=== PATIENT | female | born 1965 | race American Indian/Alaskan Native ===

== ENCOUNTER 2017-01-29 20:48 | Emergency (ER) | payer SELFPAY ==
[2017-01-29 21:51] LABS: Basophils % (Auto) 0.7 % (0.0-1.8); Hematocrit 30.5 % (30.3-42.9); Hemoglobin 9.8 gm/dl (10.1-14.3); Mean Corpuscular HGB Conc 32 % (30-34); Mean Corpuscular Hemoglobin 26 pg (28-32); Mean Corpuscular Volume 82 fl (79-97); Platelet Count 384 K/mm3 (140-440); Red Blood Count 3.72 M/mm3 (3.65-5.03); Red Cell Distribution Width 14.5 % (13.2-15.2); White Blood Count 7.9 K/mm3 (4.5-11.0)
[2017-01-29 21:55] LABS: Alanine Aminotransferase 10 units/L (7-56); Albumin/Globulin Ratio 1.1 %; Alkaline Phosphatase 69 units/L (35-129); Anion Gap 20 mmol/L; BUN/Creatinine Ratio 11.42; Blood Urea Nitrogen 8 mg/dL (7-17); Calcium 9.5 mg/dL (8.4-10.2); Carbon Dioxide 21 mmol/L (22-30); Chloride 102.4 mmol/L (98-107); Glucose 97 mg/dL (65-100); Lipase 35 units/L (13-60); Sodium 139 mmol/L (137-145); Total Protein 7.6 g/dL (6.3-8.2)
[2017-01-29 22:01] LABS: INR 0.91 (0.87-1.13)
[2017-01-29 22:02] LABS: Partial Thromboplastin Time 29.6 Sec. (24.2-36.6)
--- NOTE | 2017-01-29 22:37 | Cat Scan Report ---
FINAL REPORT EXAM: CT HEAD/BRAIN WO CON HISTORY: Headache, Arm numb, preg test pending TECHNIQUE: CT imaging acquired through the head without intravenous contrast. Transaxial reformations are provided. PRIORS: None. FINDINGS: The ventricles, cisterns and sulci are normal. No intraparenchymal or extra-axial mass, hemorrhage, or mass effect. Mejia and white-matter differentiation is normal. Normal spherical shape of the globes. Left maxillary sinus fluid level. Remaining imaged paranasal sinuses are clear. Hyperostosis frontalis is noted. No skull or facial fracture visualized. IMPRESSION: No acute intracranial abnormality. Left maxillary sinus fluid level. Please correlate for symptoms of acute sinusitis.
--- NOTE | 2017-01-29 22:38 | XRay Report ---
FINAL REPORT EXAM: XR CHEST ROUTINE 2V HISTORY: Cardiac? Arm numb, Preg test pending, TECHNIQUE: PA and lateral chest radiographs PRIORS: None. FINDINGS: No mediastinal shift. Cardiac silhouette is not enlarged. No pneumothorax, effusion, or focal pulmonary opacity. No acute skeletal finding. IMPRESSION: No focal pulmonary opacity.
[2017-01-29 23:12] LABS: Bilirubin,Urine NEG (Negative); Blood,Urine NEG (Negative); Ketones,Urine NEG (Negative); Leukocyte Esterase,Urine NEG (Negative); Mucus,Urine FEW /HPF; Nitrite,Urine NEG (Negative); Protein,Urine <15 mg/dL mg/dL (Negative); Urobilinogen,Urine < 2.0 mg/dL (<2.0)
--- NOTE | 2017-01-30 01:25 | Emergency Department Report ---
ED General Adult HPI - General Chief complaint: Chest Pain Stated complaint: HEADACHE/LEFT SIDE NUMBNESS Time Seen by Provider: 01/30/17 00:43 Source: patient Mode of arrival: Ambulatory Limitations: No Limitations - History of Present Illness Initial comments: Patient comes into the ER today with complaints of left-sided headache for the past 3 days. She describes the headache as a throbbing pressure type pain. Patient denies any injury or visual changes. Patient states that she has also been having intermittent tightening sensation in her left arm as well. Patient denies any chest pain. Patient does state that she has been fatigued as well. Patient further notes that her menstrual cycles have been heavier than normal and that her last cycle ended 5-6 days ago. -: days(s) (3) Severity scale (0 -10): 4 - Related Data Previous Rx's Medication Instructions Recorded Last Taken Type HYDROcodone/APAP 5-325 [[place] 1 each PO Q6HR PRN #12 tablet 12/02/15 Unknown Rx 5/325] Ibuprofen [Motrin 800 MG tab] 800 mg PO Q8HR PRN #30 tablet 12/02/15 Unknown Rx Amoxicillin/K Clav Tab [Augmentin 1 tab PO Q12HR #20 tab 01/30/17 Unknown Rx 875 mg] Butalb/Acetamin/Caff 50-325-40 1 tab PO Q6HR PRN #15 tab 01/30/17 Unknown Rx [Fioricet] Ferrous Sulfate [Feosol 325 MG tab] 325 mg PO QDAY #30 tablet 01/30/17 Unknown Rx Allergies Allergy/AdvReac Type Severity Reaction Status Date / Time No Known Allergies Allergy Verified 10/23/15 16:52 ED Review of Systems ROS: Stated complaint: HEADACHE/LEFT SIDE NUMBNESS Other details as noted in HPI Constitutional: denies: chills, fever Eyes: denies: eye pain, eye discharge, vision change ENT: congestion. denies: ear pain, throat pain, dental pain, hearing loss, epistaxis Respiratory: denies: cough, shortness of breath, SOB with exertion, wheezing Cardiovascular: denies: chest pain, palpitations, dyspnea on exertion, edema, syncope Endocrine: no symptoms reported Gastrointestinal: denies: abdominal pain, nausea, vomiting, diarrhea, constipation Genitourinary: denies: urgency, dysuria, discharge Musculoskeletal: myalgia. denies: back pain, joint swelling, arthralgia Skin: denies: rash, lesions Neurological: headache, vertigo. denies: weakness, numbness, paresthesias, confusion Psychiatric: denies: anxiety, depression Hematological/Lymphatic: denies: easy bleeding, easy bruising ED Past Medical Hx - Past Medical History Previous Medical History?: No - Surgical History Past Surgical History?: No - Social History Smoking Status: Former Smoker Substance Use Type: Alcohol - Medications Home Medications: Home Medications Medication Instructions Recorded Confirmed Last Taken Type HYDROcodone/APAP 5-325 [[place] 1 each PO Q6HR PRN #12 tablet 12/02/15 Unknown Rx 5/325] Ibuprofen [Motrin 800 MG tab] 800 mg PO Q8HR PRN #30 tablet 12/02/15 Unknown Rx Amoxicillin/K Clav Tab [Augmentin 1 tab PO Q12HR #20 tab 01/30/17 Unknown Rx 875 mg] Butalb/Acetamin/Caff 50-325-40 1 tab PO Q6HR PRN #15 tab 01/30/17 Unknown Rx [Fioricet] Ferrous Sulfate [Feosol 325 MG tab] 325 mg PO QDAY #30 tablet 01/30/17 Unknown Rx ED Physical Exam - General Limitations: No Limitations General appearance: alert, in no apparent distress - Head Head exam: Present: atraumatic, normocephalic, normal inspection - Eye Eye exam: Present: normal appearance, PERRL, EOMI. Absent: conjunctival injection, periorbital swelling, periorbital tenderness Pupils: Present: normal accommodation - ENT ENT exam: Present: mucous membranes moist, TM's normal bilaterally, normal external ear exam, other (bilateral nasal mucosa redness and swelling. Left sided frontal and maxillary sinus tenderness) - Neck Neck exam: Present: normal inspection, full ROM. Absent: tenderness, lymphadenopathy, thyromegaly - Respiratory Respiratory exam: Present: normal lung sounds bilaterally. Absent: respiratory distress, wheezes, rales, rhonchi, chest wall tenderness, decreased breath sounds - Cardiovascular Cardiovascular Exam: Present: regular rate, normal rhythm. Absent: systolic murmur, diastolic murmur, rubs, gallop - GI/Abdominal GI/Abdominal exam: Present: soft, normal bowel sounds. Absent: distended, tenderness, guarding, rebound - Extremities Exam Extremities exam: Present: normal inspection, full ROM, normal capillary refill. Absent: tenderness, pedal edema, joint swelling, calf tenderness - Back Exam Back exam: Present: normal inspection, full ROM. Absent: tenderness, CVA tenderness (R), CVA tenderness (L), muscle spasm - Neurological Exam Neurological exam: Present: alert, oriented X3, CN II-XII intact, normal gait, reflexes normal. Absent: motor sensory deficit - Psychiatric Psychiatric exam: Present: normal affect, normal mood - Skin Skin exam: Present: warm, dry, intact, normal color. Absent: rash ED Course Vital Signs 01/29/17 21:05 Temperature 98.7 F Pulse Rate 99 H Respiratory 18 Rate Blood Pressure 156/91 [Right] O2 Sat by Pulse 100 Oximetry ED Medical Decision Making - Lab Data Result diagrams: 01/29/17 21:19 01/29/17 21:19 Lab Results 01/29/17 01/29/17 01/29/17 Range/Units 21:19 21:19 21:19 WBC 7.9 (4.5-11.0) K/mm3 RBC 3.72 (3.65-5.03) M/mm3 Hgb 9.8 L (10.1-14.3) gm/dl Hct 30.5 (30.3-42.9) % MCV 82 (79-97) fl MCH 26 L (28-32) pg MCHC 32 (30-34) % RDW 14.5 (13.2-15.2) % Plt Count 384 (140-440) K/mm3 Lymph % (Auto) 34.0 (13.4-35.0) % [place] % (Auto) 7.3 (0.0-7.3) % Eos % (Auto) 1.0 (0.0-4.3) % Baso % (Auto) 0.7 (0.0-1.8) % Lymph # 2.7 (1.2-5.4) K/mm3 [place] # 0.6 (0.0-0.8) K/mm3 Eos # 0.1 (0.0-0.4) K/mm3 Baso # 0.1 (0.0-0.1) K/mm3 Seg Neutrophils % 57.0 (40.0-70.0) % Seg Neutrophils # 4.5 (1.8-7.7) K/mm3 PT (12.2-14.9) Sec. INR (0.87-1.13) APTT (24.2-36.6) Sec. Sodium 139 (137-145) mmol/L Potassium 4.0 (3.6-5.0) mmol/L Chloride 102.4 (98-107) mmol/L Carbon Dioxide 21 L (22-30) mmol/L Anion Gap 20 mmol/L BUN 8 (7-17) mg/dL Creatinine 0.7 (0.7-1.2) mg/dL Estimated GFR > 60 ml/min BUN/Creatinine Ratio 11.42 % Glucose 97 (65-100) mg/dL Calcium 9.5 (8.4-10.2) mg/dL Total Bilirubin 0.40 (0.1-1.2) mg/dL AST 13 (5-40) units/L ALT 10 (7-56) units/L Alkaline Phosphatase 69 (35-129) units/L Troponin T < 0.010 (0.00-0.029) ng/mL Total Protein 7.6 (6.3-8.2) g/dL Albumin 4.0 (3.9-5) g/dL Albumin/Globulin Ratio 1.1 % Lipase 35 (13-60) units/L HCG, Qual Negative (Negative) Urine Color (Yellow) Urine Turbidity (Clear) Urine pH (5.0-7.0) Ur Specific [place] (1.003-1.030) Urine Protein (Negative) mg/dL Urine Glucose (UA) (Negative) mg/dL Urine Ketones (Negative) mg/dL Urine Blood (Negative) Urine Nitrite (Negative) Urine Bilirubin (Negative) Urine Urobilinogen (<2.0) mg/dL Ur Leukocyte Esterase (Negative) Urine WBC (Auto) (0.0-6.0) /HPF Urine RBC (Auto) (0.0-6.0) /HPF U Epithel Cells (Auto) (0-13.0) /HPF Urine Mucus /HPF 01/29/17 01/29/17 01/30/17 Range/Units 21:19 22:03 00:22 WBC (4.5-11.0) K/mm3 RBC (3.65-5.03) M/mm3 Hgb (10.1-14.3) gm/dl Hct (30.3-42.9) % MCV (79-97) fl MCH (28-32) pg MCHC (30-34) % RDW (13.2-15.2) % Plt Count (140-440) K/mm3 Lymph % (Auto) (13.4-35.0) % [place] % (Auto) (0.0-7.3) % Eos % (Auto) (0.0-4.3) % Baso % (Auto) (0.0-1.8) % Lymph # (1.2-5.4) K/mm3 [place] # (0.0-0.8) K/mm3 Eos # (0.0-0.4) K/mm3 Baso # (0.0-0.1) K/mm3 Seg Neutrophils % (40.0-70.0) % Seg Neutrophils # (1.8-7.7) K/mm3 PT 12.7 (12.2-14.9) Sec. INR 0.91 (0.87-1.13) APTT 29.6 (24.2-36.6) Sec. Sodium (137-145) mmol/L Potassium (3.6-5.0) mmol/L Chloride (98-107) mmol/L Carbon Dioxide (22-30) mmol/L Anion Gap mmol/L BUN (7-17) mg/dL Creatinine (0.7-1.2) mg/dL Estimated GFR ml/min BUN/Creatinine Ratio % Glucose (65-100) mg/dL Calcium (8.4-10.2) mg/dL Total Bilirubin (0.1-1.2) mg/dL AST (5-40) units/L ALT (7-56) units/L Alkaline Phosphatase (35-129) units/L Troponin T < 0.010 (0.00-0.029) ng/mL Total Protein (6.3-8.2) g/dL Albumin (3.9-5) g/dL Albumin/Globulin Ratio % Lipase (13-60) units/L HCG, Qual (Negative) Urine Color Yellow (Yellow) Urine Turbidity Clear (Clear) Urine pH 5.0 (5.0-7.0) Ur Specific [place] 1.018 (1.003-1.030) Urine Protein <15 mg/dl (Negative) mg/dL Urine Glucose (UA) Neg (Negative) mg/dL Urine Ketones Neg (Negative) mg/dL Urine Blood Neg (Negative) Urine Nitrite Neg (Negative) Urine Bilirubin Neg (Negative) Urine Urobilinogen < 2.0 (<2.0) mg/dL Ur Leukocyte Esterase Neg (Negative) Urine WBC (Auto) 1.0 (0.0-6.0) /HPF Urine RBC (Auto) 3.0 (0.0-6.0) /HPF U Epithel Cells (Auto) 6.0 (0-13.0) /HPF Urine Mucus Few /HPF - EKG Data -: EKG Interpreted by Me EKG shows normal: sinus rhythm - EKG Data When compared to previous EKG there are: no significant change Interpretation: no acute changes - Radiology Data Radiology results: report reviewed Chest x-ray interpreted as normal Head CT without contrast reveals left sided sinus disease. No acute intracranial pathology noted. - Medical Decision Making Patient is nontoxic and hemodynamically stable. I believe patient's symptoms might be related to underlying sinus disease that may be escalating into complex migraines. Imaging as well as EKG and lab workup reviewed and discussed with patient and family in room. Patient has negative cardiac workup. I believe patient's anemia is most likely to her stroll cycle irregularity that she has been having. I will start patient on some supplemental iron and have encouraged patient to follow up with her primary care doctor to recheck her levels. Patient is not experiencing any neuro deficits and is without any signs or symptoms consistent with a CVA. Patient is in agreement with treatment plan and patient is stable for discharge. Critical care attestation.: If time is entered above; I have spent that time in minutes in the direct care of this critically ill patient, excluding procedure time. ED Disposition Clinical Impression: Left-sided headache, Sinusitis, Anemia, Elevated blood pressure reading Disposition: DC-01 TO HOME OR SELFCARE Is pt being admited?: No Does the pt Need Aspirin: No Condition: Good Instructions: Iron Deficiency Anemia (ED), Sinusitis (ED), Migraine Headache ( ED), How to Take a Blood Pressure (ED) Prescriptions: Amoxicillin/K Clav Tab [Augmentin 875 mg] 1 tab PO Q12HR #20 tab Butalb/Acetamin/Caff 50-325-40 [Fioricet] 1 tab PO Q6HR PRN #15 tab PRN Reason: Headache Ferrous Sulfate [Feosol 325 MG tab] 325 mg PO QDAY #30 tablet Referrals: PRIMARY CARE, [Primary Care Provider] - 3-5 Days [facility] [Outside] - 3-5 Days [facility] [Outside] - 3-5 Days Time of Disposition: 01:35
[2017-01-30 01:31] VITALS: BP 152/85
== END 2017-01-30 01:52 | disposition home or self-care (01) ==
LOC: ED 20:48
DX: J32.0 Chronic maxillary sinusitis (principal); J32.1 Chronic frontal sinusitis; D64.9 Anemia, unspecified; R03.0 Elevated blood-pressure reading, without diagnosis of hypertension; Z87.891 Personal history of nicotine dependence
CPT/HCPCS: 36415; 70450; 71020; 80053; 81001; 83690; 84484; 84703; 85025; 85610; 85730; 93005; 93010; 99285

== ENCOUNTER 2017-04-12 10:47 | Emergency (ER) | payer SELFPAY ==
--- NOTE | 2017-04-12 11:20 | Emergency Department Report ---
Chief Complaint: Chest Pain Stated Complaint: GE/TIGHTNESS IN CHEST Time Seen by Provider: 04/12/17 11:15 - HPI History of Present Illness: PT c/o chest tightening up x 2 weeks. PT states it is worse with eating. PT states she was dx with Gerd. PT states she took Pepcid for 6 months - only helped for 4 months PT states she was switched to Nexium - taking for 3 months - no improvement Started taking Zantac in March - ROS Review of Systems: + decrease appetite + nausea - vomiting - abd pain + back pain - Exam Vital Signs: Vital Signs 04/12/17 10:58 Temperature 98.7 F Pulse Rate 80 Respiratory 18 Rate Blood Pressure 133/67 O2 Sat by Pulse 99 Oximetry Physical Exam: pt looks well, non toxic steady gait + chest wall tenderness abd soft and non tender MSE screening note: Focused history and physical exam performed. Due to findings the following was ordered: labs, xr ED Disposition for MSE Condition: Stable
--- NOTE | 2017-04-12 11:59 | XRay Report ---
ROUTINE CHEST, TWO VIEWS: HISTORY: chest pain. The trachea, heart, mediastinal contour, lung draper and bony thorax are unremarkable. IMPRESSION: Unremarkable chest x-ray.
[2017-04-12 12:26] LABS: Alanine Aminotransferase 9 units/L (7-56); Albumin 4.2 g/dL (3.9-5); Albumin/Globulin Ratio 1.1 %; Alkaline Phosphatase 73 units/L (35-129); Anion Gap 19 mmol/L; BUN/Creatinine Ratio 18.57; Blood Urea Nitrogen 13 mg/dL (7-17); Calcium 9.6 mg/dL (8.4-10.2); Carbon Dioxide 22 mmol/L (22-30); Chloride 102.1 mmol/L (98-107); Glucose 95 mg/dL (65-100); Lipase 36 units/L (13-60); Potassium 4.3 mmol/L (3.6-5.0); Sodium 139 mmol/L (137-145); Total Protein 7.9 g/dL (6.3-8.2)
[2017-04-12 12:29] LABS: Basophils % (Auto) 0.9 % (0.0-1.8); Eosinophils % (Auto) 1.4 % (0.0-4.3); Hematocrit 32.5 % (30.3-42.9); Hemoglobin 10.3 gm/dl (10.1-14.3); Mean Corpuscular HGB Conc 32 % (30-34); Mean Corpuscular Volume 81 fl (79-97); Platelet Count 349 K/mm3 (140-440); Red Blood Count 4.02 M/mm3 (3.65-5.03); Red Cell Distribution Width 15.6 % (13.2-15.2); White Blood Count 5.4 K/mm3 (4.5-11.0)
[2017-04-12 12:33] LABS: Mean Corpuscular Hemoglobin 26 pg (28-32)
[2017-04-12 12:38] LABS: INR 0.9 (0.87-1.13)
[2017-04-12 12:39] LABS: Partial Thromboplastin Time 30.5 Sec. (24.2-36.6)
--- NOTE | 2017-04-12 22:11 | Emergency Department Report ---
ED General Adult HPI - General Chief complaint: Chest Pain Stated complaint: GE/TIGHTNESS IN CHEST Time Seen by Provider: 04/12/17 11:15 Source: patient Mode of arrival: Ambulatory Limitations: No Limitations - History of Present Illness Initial comments: Patient is year-old female past medical history of GERD who presents with epigastric abdominal pain as been going on for the last 2 weeks. As a burning type of pain is worse at night. Fatty foods makes it worse. Also when she lays down to sleep she feels a sharp burning pain and she has to sleep propped up. She states it's a burning type of pain it is a 10 out of 10 and radiates to her face. It is intermittent. She has tried Pepcid and Nexium for it however nothing has relieved it. Patient denies having any vomiting or any nausea. Severity scale (0 -10): 0 - Related Data Previous Rx's Medication Instructions Recorded Last Taken Type HYDROcodone/APAP 5-325 [[place] 1 each PO Q6HR PRN #12 tablet 12/02/15 Unknown Rx 5/325] Ibuprofen [Motrin 800 MG tab] 800 mg PO Q8HR PRN #30 tablet 12/02/15 Unknown Rx Amoxicillin/K Clav Tab [Augmentin 1 tab PO Q12HR #20 tab 01/30/17 Unknown Rx 875 mg] Butalb/Acetamin/Caff 50-325-40 1 tab PO Q6HR PRN #15 tab 01/30/17 Unknown Rx [Fioricet] Ferrous Sulfate [Feosol 325 MG tab] 325 mg PO QDAY #30 tablet 01/30/17 Unknown Rx Famotidine [Pepcid] 40 mg PO BID #60 tablet 04/13/17 Unknown Rx Allergies Allergy/AdvReac Type Severity Reaction Status Date / Time No Known Allergies Allergy Verified 10/23/15 16:52 ED Review of Systems ROS: Stated complaint: GE/TIGHTNESS IN CHEST Other details as noted in HPI Constitutional: denies: chills, fever Eyes: denies: eye pain, eye discharge, vision change ENT: denies: ear pain, throat pain Respiratory: shortness of breath. denies: cough, wheezing Cardiovascular: denies: chest pain, palpitations Endocrine: no symptoms reported Gastrointestinal: abdominal pain. denies: nausea, diarrhea Genitourinary: denies: urgency, dysuria, discharge Musculoskeletal: denies: back pain, joint swelling, arthralgia Skin: denies: rash, lesions Neurological: denies: headache, weakness, paresthesias Psychiatric: denies: anxiety, depression Hematological/Lymphatic: denies: easy bleeding, easy bruising ED Past Medical Hx - Past Medical History Previous Medical History?: No - Surgical History Past Surgical History?: No - Social History Smoking Status: Former Smoker Substance Use Type: None - Medications Home Medications: Home Medications Medication Instructions Recorded Confirmed Last Taken Type HYDROcodone/APAP 5-325 [[place] 1 each PO Q6HR PRN #12 tablet 12/02/15 Unknown Rx 5/325] Ibuprofen [Motrin 800 MG tab] 800 mg PO Q8HR PRN #30 tablet 12/02/15 Unknown Rx Amoxicillin/K Clav Tab [Augmentin 1 tab PO Q12HR #20 tab 01/30/17 Unknown Rx 875 mg] Butalb/Acetamin/Caff 50-325-40 1 tab PO Q6HR PRN #15 tab 01/30/17 Unknown Rx [Fioricet] Ferrous Sulfate [Feosol 325 MG tab] 325 mg PO QDAY #30 tablet 01/30/17 Unknown Rx Famotidine [Pepcid] 40 mg PO BID #60 tablet 04/13/17 Unknown Rx ED Physical Exam - General Limitations: No Limitations General appearance: alert, in no apparent distress - Head Head exam: Present: atraumatic, normocephalic - Eye Eye exam: Present: normal appearance - ENT ENT exam: Present: mucous membranes moist - Neck Neck exam: Present: normal inspection - Respiratory Respiratory exam: Present: normal lung sounds bilaterally. Absent: respiratory distress - Cardiovascular Cardiovascular Exam: Present: regular rate, normal rhythm. Absent: systolic murmur, diastolic murmur, rubs, gallop - GI/Abdominal GI/Abdominal exam: Present: soft, normal bowel sounds - Extremities Exam Extremities exam: Present: normal inspection - Back Exam Back exam: Present: normal inspection - Neurological Exam Neurological exam: Present: alert, oriented X3 - Psychiatric Psychiatric exam: Present: normal affect, normal mood - Skin Skin exam: Present: warm, dry, intact, normal color. Absent: rash ED Course Vital Signs 04/12/17 04/12/17 04/12/17 10:58 20:48 20:54 Temperature 98.7 F 98.8 F Pulse Rate 80 86 77 Respiratory 18 14 18 Rate Blood Pressure 133/67 Blood Pressure 127/64 [Right] O2 Sat by Pulse 99 99 Oximetry - Reevaluation(s) Reevaluation #1: 04/13/17 00:27 Reevaluate patient work is unremarkable. I will give patient a GI cocktail, Protonix and [place] ED Medical Decision Making - Lab Data Result diagrams: 04/12/17 11:48 04/12/17 11:48 Lab Results 04/12/17 04/12/17 04/12/17 Range/Units 11:48 11:48 11:48 WBC 5.4 (4.5-11.0) K/mm3 RBC 4.02 (3.65-5.03) M/mm3 Hgb 10.3 (10.1-14.3) gm/dl Hct 32.5 (30.3-42.9) % MCV 81 (79-97) fl MCH 26 L (28-32) pg MCHC 32 (30-34) % RDW 15.6 H (13.2-15.2) % Plt Count 349 (140-440) K/mm3 Lymph % (Auto) 31.6 (13.4-35.0) % [place] % (Auto) 7.8 H (0.0-7.3) % Eos % (Auto) 1.4 (0.0-4.3) % Baso % (Auto) 0.9 (0.0-1.8) % Lymph # 1.7 (1.2-5.4) K/mm3 [place] # 0.4 (0.0-0.8) K/mm3 Eos # 0.1 (0.0-0.4) K/mm3 Baso # 0.0 (0.0-0.1) K/mm3 Seg Neutrophils % 58.3 (40.0-70.0) % Seg Neutrophils # 3.1 (1.8-7.7) K/mm3 PT 12.6 (12.2-14.9) Sec. INR 0.90 (0.87-1.13) APTT 30.5 (24.2-36.6) Sec. Sodium 139 (137-145) mmol/L Potassium 4.3 (3.6-5.0) mmol/L Chloride 102.1 (98-107) mmol/L Carbon Dioxide 22 (22-30) mmol/L Anion Gap 19 mmol/L BUN 13 (7-17) mg/dL Creatinine 0.7 (0.7-1.2) mg/dL Estimated GFR > 60 ml/min BUN/Creatinine Ratio 18.57 % Glucose 95 (65-100) mg/dL Calcium 9.6 (8.4-10.2) mg/dL Total Bilirubin 0.40 (0.1-1.2) mg/dL AST 13 (5-40) units/L ALT 9 (7-56) units/L Alkaline Phosphatase 73 (35-129) units/L Troponin T < 0.010 (0.00-0.029) ng/mL NT-Pro-B Natriuret Pep (0-900) pg/mL Total Protein 7.9 (6.3-8.2) g/dL Albumin 4.2 (3.9-5) g/dL Albumin/Globulin Ratio 1.1 % Lipase 36 (13-60) units/L HCG, Qual (Negative) 04/12/17 04/12/17 04/12/17 Range/Units 11:48 20:54 20:54 WBC (4.5-11.0) K/mm3 RBC (3.65-5.03) M/mm3 Hgb (10.1-14.3) gm/dl Hct (30.3-42.9) % MCV (79-97) fl MCH (28-32) pg MCHC (30-34) % RDW (13.2-15.2) % Plt Count (140-440) K/mm3 Lymph % (Auto) (13.4-35.0) % [place] % (Auto) (0.0-7.3) % Eos % (Auto) (0.0-4.3) % Baso % (Auto) (0.0-1.8) % Lymph # (1.2-5.4) K/mm3 [place] # (0.0-0.8) K/mm3 Eos # (0.0-0.4) K/mm3 Baso # (0.0-0.1) K/mm3 Seg Neutrophils % (40.0-70.0) % Seg Neutrophils # (1.8-7.7) K/mm3 PT (12.2-14.9) Sec. INR (0.87-1.13) APTT (24.2-36.6) Sec. Sodium (137-145) mmol/L Potassium (3.6-5.0) mmol/L Chloride (98-107) mmol/L Carbon Dioxide (22-30) mmol/L Anion Gap mmol/L BUN (7-17) mg/dL Creatinine (0.7-1.2) mg/dL Estimated GFR ml/min BUN/Creatinine Ratio % Glucose (65-100) mg/dL Calcium (8.4-10.2) mg/dL Total Bilirubin (0.1-1.2) mg/dL AST (5-40) units/L ALT (7-56) units/L Alkaline Phosphatase (35-129) units/L Troponin T < 0.010 (0.00-0.029) ng/mL NT-Pro-B Natriuret Pep 22.16 (0-900) pg/mL Total Protein (6.3-8.2) g/dL Albumin (3.9-5) g/dL Albumin/Globulin Ratio % Lipase (13-60) units/L HCG, Qual Negative (Negative) - EKG Data -: EKG Interpreted by [place] - EKG Data 04/13/17 00:06 EKG shows normal sinus rhythm possible left atrial enlargement no ST segment segment elevation or T-wave inversion. - Radiology Data Radiology results: image reviewed CT angiogram of chest: Shows no pulmonary embolism no evidence of heart failure. - Medical Decision Making Chief medical diagnosis: GERD Differential diagnosis: Peptic ulcer, pancreatitis, non-STEMI, heart failure, pulmonary embolism CBC, CMP, troponin, EKG, BNP, CT angiogram, oral analgesic pain medication Patient's blood work is unremarkable CT angiogram is unremarkable due to patient having 2 negative troponins and EKG being unremarkable and having a negative BNP. It is unlikely patient's symptoms are cardiac in nature. Due to this being chronic and more of the same type of pain. I will send patient home with Protonix and I will have patient follow-up with a GI doctor Dr. De La Garza. I discussed the plan with the patient she agrees to plan and she verbalized understanding. An additional verbal discharge instructions were given Critical care attestation.: If time is entered above; I have spent that time in minutes in the direct care of this critically ill patient, excluding procedure time. ED Disposition Clinical Impression: Epigastric abdominal pain, Mild shortness of breath GERD (gastroesophageal reflux disease) Qualifiers: Esophagitis presence: esophagitis presence not specified Qualified Code(s): K21.9 - Gastro-esophageal reflux disease without esophagitis Disposition: TO HOME OR SELFCARE Is pt being admited?: No Does the pt Need Aspirin: No Condition: Stable Instructions: Diet for Ulcers and Gastritis (ED), Gastroesophageal Reflux Disease (ED), Esophageal Spasm (ED) Prescriptions: Famotidine [Pepcid] 40 mg PO BID #60 tablet Referrals: ZORAIDA DE LA GARZA MD [Staff Physician] - 3-5 Days
--- NOTE | 2017-04-12 23:21 | Cat Scan Report ---
FINAL REPORT EXAM: CT ANGIO CHEST HISTORY: eval for PE TECHNIQUE: CT chest CT angiogram with reconstructions PRIORS: None. FINDINGS: There is no evidence of filling defect within the central pulmonary vasculature to suggest the presence of acute pulmonary embolus. No evidence of mediastinal pathologic lymph node enlargement Heart and great vessels are unremarkable. The aorta is normal in caliber. No focal pulmonary infiltrate identified. No pleural fluid collection seen. No acute pulmonary abnormality noted. Visualized portion of the upper abdomen demonstrates no acute change. IMPRESSION: Negative. No CT evidence of acute pulmonary embolus
[2017-04-13] MEDS: PROTONIX IV ONE (01:02)
[2017-04-13] MEDS: NORCO 10/325 PO ONE (01:02)
[2017-04-13] MEDS: LIDOCAINE VISCOUS 2% PO ONE (01:02)
[2017-04-13] MEDS: ALUM-MAG HYDROX-SIMETH 200-200-20MG/5ML PO ONE (01:02)
[2017-04-13 01:45] VITALS: BP 128/74
== END 2017-04-13 01:45 | disposition home or self-care (01) ==
LOC: ED 10:47
DX: K21.9 Gastro-esophageal reflux disease without esophagitis (principal); R10.13 Epigastric pain; R06.02 Shortness of breath; Z87.891 Personal history of nicotine dependence
CPT/HCPCS: 36415; 71020; 71275; 80053; 83690; 83880; 84484; 84703; 85025; 85610; 85730; 93005; 93010; 96374; 99284; C9113; Q9967

== ENCOUNTER 2017-05-16 10:04 | Inpatient (IN) | payer OTHER ==
[2017-05-16 10:50] LABS: Basophils % (Auto) 0.6 % (0.0-1.8); Eosinophils % (Auto) 1.1 % (0.0-4.3); Hematocrit 33.1 % (30.3-42.9); Hemoglobin 10.4 gm/dl (10.1-14.3); Mean Corpuscular HGB Conc 31 % (30-34); Mean Corpuscular Volume 80 fl (79-97); Platelet Count 281 K/mm3 (140-440); Red Blood Count 4.12 M/mm3 (3.65-5.03); Red Cell Distribution Width 15.6 % (13.2-15.2); White Blood Count 4.7 K/mm3 (4.5-11.0)
[2017-05-16 10:51] LABS: Mean Corpuscular Hemoglobin 25 pg (28-32)
[2017-05-16 11:00] LABS: Anion Gap 18 mmol/L; BUN/Creatinine Ratio 10; Blood Urea Nitrogen 7 mg/dL (7-17); Calcium 9.4 mg/dL (8.4-10.2); Carbon Dioxide 21 mmol/L (22-30); Chloride 105.2 mmol/L (98-107); Glucose 100 mg/dL (65-100); Sodium 140 mmol/L (137-145)
[2017-05-16 11:40] LABS: Bilirubin,Urine NEG (Negative); Blood,Urine NEG (Negative); Ketones,Urine NEG (Negative); Leukocyte Esterase,Urine NEG (Negative); Mucus,Urine FEW /HPF; Nitrite,Urine NEG (Negative); Protein,Urine <15 mg/dL mg/dL (Negative); Urobilinogen,Urine < 2.0 mg/dL (<2.0); WBC,Urine < 1.0 /HPF (0.0-6.0)
--- NOTE | 2017-05-16 12:43 | Emergency Department Report ---
ED Chest Pain HPI - General Chief Complaint: Chest Pain Stated Complaint: CHEST PAIN/SOB Time Seen by Provider: 05/16/17 12:17 Source: patient Mode of arrival: Ambulatory Limitations: No Limitations - History of Present Illness Initial Comments: This is a 51-year-old female presents to the emergency department with a complaint of a one-week history of midsternal chest discomfort and/or pressure. The patient was here about one month ago and was diagnosed with acid reflux. She was placed on Pepcid, Protonix and has been taking compliantly. She also has seen a licensed and certified midwife "across the street" and had a workup and per the patient the licensed and certified midwife also agrees that this could be acid reflux. However despite her medication compliance and dietary changes that she has made, she has had this chest pain for the past week that feels slightly different than the burning sensation that brought her in about 1 month ago. Other than the acid reflux she denies any other past mental history. She denies any tobacco abuse or illicit drug use or abuse. She does not currently have a primary care physician. Recent travel or sick contacts at home. Severity scale (0 -10): 6 - Related Data Home Medications Medication Instructions Recorded Confirmed Last Taken Pantoprazole [Protonix] 40 mg PO QDAY 05/16/17 05/16/17 05/15/17 Ranitidine HCl [Acid Jukebox Checker] 150 mg PO BID 05/16/17 05/16/17 05/15/17 Allergies Allergy/AdvReac Type Severity Reaction Status Date / Time No Known Allergies Allergy Verified 10/23/15 16:52 Heart Score - HEART Score History: Slightly suspicious EKG: Non-specific Age: 45-65 Risk factors: No known risk factors Troponin: < normal limit HEART Score: 2 - Critical Actions Critical Actions: 0-3 pts:0.9-1.7%risk of adverse cardiac event.Candidate for discharge ED Review of Systems ROS: Stated complaint: CHEST PAIN/SOB Other details as noted in HPI Comment: All other systems reviewed and negative Constitutional: denies: chills, fever Eyes: denies: eye pain, eye discharge, vision change ENT: denies: ear pain, throat pain Respiratory: denies: cough, shortness of breath, wheezing Cardiovascular: chest pain. denies: palpitations Gastrointestinal: abdominal pain (epigastric). denies: vomiting Genitourinary: denies: urgency, dysuria, discharge Musculoskeletal: denies: back pain, joint swelling, arthralgia Skin: denies: rash, lesions Neurological: denies: headache, weakness, paresthesias ED Past Medical Hx - Past Medical History Hx GERD: Yes - Social History Smoking Status: Never Smoker Substance Use Type: None - Medications Home Medications: Home Medications Medication Instructions Recorded Confirmed Last Taken Type Pantoprazole [Protonix] 40 mg PO QDAY 05/16/17 05/16/17 05/15/17 History Ranitidine HCl [Acid Jukebox Checker] 150 mg PO BID 05/16/17 05/16/17 05/15/17 History ED Physical Exam - General Limitations: No Limitations - Other Other exam information: GENERAL: The patient is well-developed well-nourished. HENT: Normocephalic. Atraumatic. Patient has moist mucous membranes. EYES: Extraocular motions are intact. Pupils equal reactive to light bilaterally. NECK: Supple. Trachea is midline. CHEST/LUNGS: Clear to auscultation. There is no respiratory distress noted. HEART/CARDIOVASCULAR: Regular. There is no tachycardia. There is no gallop rub or murmur. ABDOMEN: Abdomen is soft, nontender. Patient has normal bowel sounds. There is no abdominal distention. SKIN: Skin is warm and dry. NEURO: The patient is awake, alert, and oriented. The patient is cooperative. The patient has no focal neurologic deficits. The patient has normal speech. MUSCULOSKELETAL: There is no tenderness or deformity. There is no limitation range of motion. There is no evidence of acute injury. ED Course Vital Signs 05/16/17 05/16/17 05/16/17 10:21 11:38 11:42 Temperature 98.2 F 98.3 F Pulse Rate 68 67 65 Respiratory 18 12 18 Rate Blood Pressure 117/70 Blood Pressure 112/56 [Left] O2 Sat by Pulse 99 99 99 Oximetry 05/16/17 05/16/17 05/16/17 11:43 12:00 13:44 Temperature Pulse Rate 55 L Respiratory 18 16 Rate Blood Pressure 107/54 110/64 Blood Pressure [Left] O2 Sat by Pulse 99 98 100 Oximetry 05/16/17 05/16/17 14:00 15:00 Temperature Pulse Rate Respiratory Rate Blood Pressure 126/70 164/91 Blood Pressure [Left] O2 Sat by Pulse 98 97 Oximetry DOMINIC score - Dominic Score Age > 65: (0) No Aspirin use within the Past 7 Days: (0) No 3 or more CAD Risk Factors: (0) No 2 or more Angina events in past 24 hrs: (1) Yes Known CAD with more than 50% Stenosis: (0) No Elevated Cardiac Markers: (0) No ST Deviation Greater than 0.5mm: (0) No DOMINIC Score: 1 ED Medical Decision Making - Lab Data Result diagrams: 05/16/17 10:31 05/16/17 10:31 - EKG Data -: EKG Interpreted by Me EKG shows normal: sinus rhythm, axis, intervals, QRS complexes, ST-T waves Rate: normal - EKG Data When compared to previous EKG there are: no significant change Interpretation: unchanged when compared t (04/12/17) - Radiology Data Radiology results: image reviewed interpreted by me: Chest x-ray does not show any acute process. There are no pleural effusions, obvious pneumonia and there is no pneumothorax. - Medical Decision Making 51-year-old female presents with some midsternal chest pain that feels different to her than the previous pain that was diagnosed with GERD. She appears to been compliant with following up with gastroenterology and taking both a PPI and H2 mayra and yet still has discomfort. I felt that for this reason the patient should have a further cardiac evaluation and make sure that there is no cardiac involvement before we continue going down the route of GERD or esophagitis. First troponin negative. Chest x-ray did not show any acute process. EKG does not show any signs of ST elevation WI. She's been accepted for admission by the hospitalist, Dr. Carvalho.. - Differential Diagnosis GERD, WI, Esophagitis, Pneumonia Critical Care Time: No Critical care attestation.: If time is entered above; I have spent that time in minutes in the direct care of this critically ill patient, excluding procedure time. ED Disposition Clinical Impression: Chest pain Qualifiers: Chest pain type: unspecified Qualified Code(s): R07.9 - Chest pain, unspecified GERD (gastroesophageal reflux disease) Qualifiers: Esophagitis presence: esophagitis presence not specified Qualified Code(s): K21.9 - Gastro-esophageal reflux disease without esophagitis Disposition: OP ADMIT IP TO THIS HOSP Is pt being admited?: Yes Does the pt Need Aspirin: Yes Condition: Stable Time of Disposition: 13:27
--- NOTE | 2017-05-16 13:26 | XRay Report ---
CHEST ONE VIEW INDICATION: Chest pain. COMPARISON: 04/12/2017. FINDINGS: Portable, single, frontal chest radiograph demonstrates normal cardiomediastinal silhouette. Clear lungs. Mild thoracic spondylosis. CONCLUSION: No acute disease in the chest, stable. Thank you for the opportunity to participate in this patient's care.
[2017-05-16] MEDS ORDERED: ALUM-MAG HYDROX-SIMETH 200-200-20MG/5ML PO ONE (13:27)
[2017-05-16] MEDS ORDERED: LIDOCAINE VISCOUS 2% PO ONE (13:27)
[2017-05-16] MEDS ORDERED: BABY ASPIRIN PO ONE (13:27)
[2017-05-16] MEDS ORDERED: HEPARIN ONE (14:37)
[2017-05-16] MEDS: HEPARIN SUB-Q SCH ×2 (14:41→21:56)
--- NOTE | 2017-05-16 23:48 | History and Physical Report ---
History of Present Illness Date of examination: 05/16/17 Date of admission: 05/16/17 13:27 Chief complaint: CC Chest pain for 1 week. History of present illness: UPPER MATTAPONI:51 y/o AAF with PMH significant for GERD comes in for recurrent Chest pain for one week.Pain is intermittent in nature dull in character.6/10 intensity.No associated SOB,Diaphoresis and Palpitations.No exacerbating or relieving factors.Was in this ER in January 2017 and April 2017 and was diagnosed with reflux esophagitis and was started on PPI's -which she is taking religiously.Was a smoker from age 19 through 36 years and quit for past 16 years.No recent travel.No fever no chills. Past Medical History Hx GERD: Yes Social History Smoking Status: Smoked from age 19 through 36 years.17 pack year history. Substance Use Type: None Medications Home Medications: Home Medications Medication Instructions Recorded Confirmed Last Taken Type Pantoprazole [Protonix] 40 mg PO QDAY 05/16/17 05/16/17 05/15/17 History Ranitidine HCl [Acid Senior Front End Web Developer] 150 mg PO BID 05/16/17 05/16/17 05/15/17 History Review of Systems Stated complaint: CHEST PAIN/SOB Other details as noted in HPI Comment: All other systems reviewed and negative Constitutional: denies: chills, fever Eyes: denies: eye pain, eye discharge, vision change ENT: denies: ear pain, throat pain Respiratory: denies: cough, shortness of breath, wheezing Cardiovascular: chest pain. denies: palpitations Gastrointestinal: abdominal pain (epigastric). denies: vomiting Genitourinary: denies: urgency, dysuria, discharge Musculoskeletal: denies: back pain, joint swelling, arthralgia Skin: denies: rash, lesions Neurological: denies: headache, weakness, paresthesias Past History Past Surgical History: No surgical history Family history: hypertension Medications and Allergies Allergies Allergy/AdvReac Type Severity Reaction Status Date / Time No Known Allergies Allergy Verified 10/23/15 16:52 Home Medications Medication Instructions Recorded Confirmed Last Taken Type Pantoprazole [Protonix] 40 mg PO QDAY 05/16/17 05/16/17 05/15/17 History Ranitidine HCl [Acid Senior Front End Web Developer] 150 mg PO BID 05/16/17 05/16/17 05/15/17 History Active Meds: Active Medications Heparin Sodium (Porcine) (Heparin) 5,000 unit SUB-Q Q8HR FRANCO Last Admin: 05/16/17 21:56 Dose: 5,000 unit Influenza Virus Vaccine Quadrival (Fluarix Quad [id number](36 Mos+)) 0.5 ml IM .ONCE ONE Stop: 05/17/17 12:01 Exam - Constitutional Vitals: Temp Pulse Resp BP Pulse Ox 98.5 F 57 L 18 108/61 97 05/16/17 20:26 05/16/17 20:26 05/16/17 20:26 05/16/17 20:26 05/16/17 20:26 General appearance: Present: no acute distress, well-nourished - EENT Eyes: Present: PERRL ENT: hearing intact, clear oral mucosa - Neck Neck: Present: supple, normal ROM - Respiratory Respiratory effort: normal Respiratory: bilateral: CTA - Cardiovascular Heart rate: 70 Heart Sounds: Present: S1 & S2. Absent: rub, click - Extremities Extremities: pulses symmetrical, No edema Peripheral Pulses: within normal limits - Abdominal General gastrointestinal: Present: soft, non-tender, non-distended, normal bowel sounds Female genitourinary: Present: normal - Integumentary Integumentary: Present: clear, warm, dry - Musculoskeletal Musculoskeletal: gait normal, strength equal bilaterally - Psychiatric Psychiatric: appropriate mood/affect, intact judgment & insight - Neurologic Neurologic: CNII-XII intact, moves all extremities Results - Labs CBC & Chem 7: 05/16/17 10:31 05/16/17 10:31 Labs: Laboratory Last Values WBC 4.7 K/mm3 (4.5-11.0) 05/16/17 10:31 RBC 4.12 M/mm3 (3.65-5.03) 05/16/17 10:31 Hgb 10.4 gm/dl (10.1-14.3) 05/16/17 10:31 Hct 33.1 % (30.3-42.9) 05/16/17 10:31 MCV 80 fl (79-97) 05/16/17 10:31 MCH 25 pg (28-32) L 05/16/17 10:31 MCHC 31 % (30-34) 05/16/17 10:31 RDW 15.6 % (13.2-15.2) H 05/16/17 10:31 Plt Count 281 K/mm3 (140-440) 05/16/17 10:31 Lymph % (Auto) 31.9 % (13.4-35.0) 05/16/17 10:31 Trigg % (Auto) 8.4 % (0.0-7.3) H 05/16/17 10:31 Eos % (Auto) 1.1 % (0.0-4.3) 05/16/17 10:31 Baso % (Auto) 0.6 % (0.0-1.8) 05/16/17 10:31 Lymph # 1.5 K/mm3 (1.2-5.4) 05/16/17 10:31 Trigg # 0.4 K/mm3 (0.0-0.8) 05/16/17 10:31 Eos # 0.1 K/mm3 (0.0-0.4) 05/16/17 10:31 Baso # 0.0 K/mm3 (0.0-0.1) 05/16/17 10:31 Seg Neutrophils % 58.0 % (40.0-70.0) 05/16/17 10:31 Seg Neutrophils # 2.7 K/mm3 (1.8-7.7) 05/16/17 10:31 Sodium 140 mmol/L (137-145) 05/16/17 10:31 Potassium 4.0 mmol/L (3.6-5.0) 05/16/17 10:31 Chloride 105.2 mmol/L (98-107) 05/16/17 10:31 Carbon Dioxide 21 mmol/L (22-30) L 05/16/17 10:31 Anion Gap 18 mmol/L 05/16/17 10:31 BUN 7 mg/dL (7-17) 05/16/17 10:31 Creatinine 0.7 mg/dL (0.7-1.2) 05/16/17 10:31 Estimated GFR > 60 ml/min 05/16/17 10:31 BUN/Creatinine Ratio 10 % 05/16/17 10:31 Glucose 100 mg/dL (65-100) 05/16/17 10:31 Calcium 9.4 mg/dL (8.4-10.2) 05/16/17 10:31 Troponin T < 0.010 ng/mL (0.00-0.029) 05/16/17 15:32 Urine Color Yellow (Yellow) 05/16/17 11:17 Urine Turbidity Clear (Clear) 05/16/17 11:17 Urine pH 6.0 (5.0-7.0) 05/16/17 11:17 Ur Specific [place] 1.013 (1.003-1.030) 05/16/17 11:17 Urine Protein <15 mg/dl mg/dL (Negative) 05/16/17 11:17 Urine Glucose (UA) Neg mg/dL (Negative) 05/16/17 11:17 Urine Ketones Neg mg/dL (Negative) 05/16/17 11:17 Urine Blood Neg (Negative) 05/16/17 11:17 Urine Nitrite Neg (Negative) 05/16/17 11:17 Urine Bilirubin Neg (Negative) 05/16/17 11:17 Urine Urobilinogen < 2.0 mg/dL (<2.0) 05/16/17 11:17 Ur Leukocyte Esterase Neg (Negative) 05/16/17 11:17 Urine WBC (Auto) < 1.0 /HPF (0.0-6.0) 05/16/17 11:17 Urine RBC (Auto) 1.0 /HPF (0.0-6.0) 05/16/17 11:17 U Epithel Cells (Auto) 1.0 /HPF (0-13.0) 05/16/17 11:17 Urine Mucus Few /HPF 05/16/17 11:17 Urine HCG, Qual Negative (Negative) 05/16/17 11:17 Short CBC 05/16/17 Range/Units 10:31 WBC 4.7 (4.5-11.0) K/mm3 Hgb 10.4 (10.1-14.3) gm/dl Hct 33.1 (30.3-42.9) % Plt Count 281 (140-440) K/mm3 BMP 05/16/17 10:31 Sodium 140 Potassium 4.0 Chloride 105.2 Carbon Dioxide 21 L BUN 7 Creatinine 0.7 Glucose 100 Calcium 9.4 Cardiac Enzymes 05/16/17 05/16/17 05/16/17 Range/Units 10:31 13:10 15:32 Total Creatine Kinase (30-135) units/L CK-MB (CK-2) (0.0-4.0) ng/mL Troponin T < 0.010 < 0.010 < 0.010 (0.00-0.029) ng/mL 05/17/17 Range/Units 01:03 Total Creatine Kinase 62 (30-135) units/L CK-MB (CK-2) < 1.0 (0.0-4.0) ng/mL Troponin T < 0.010 (0.00-0.029) ng/mL Urine 05/16/17 Range/Units 11:17 Urine Color Yellow (Yellow) Urine pH 6.0 (5.0-7.0) Ur Specific [place] 1.013 (1.003-1.030) Urine Protein <15 mg/dl (Negative) mg/dL Urine Glucose (UA) Neg (Negative) mg/dL - Imaging and Cardiology EKG: report reviewed (NSR [address] elevation L AVL) Chest x-ray: report reviewed (NAF) Assessment and Plan Advance Directives: Yes (Full code) VTE prophylaxis?: Chemical Plan of care discussed with patient/family: Yes - Patient Problems (1) Chest pain Current Visit: Yes Status: Acute Qualifiers: Chest pain type: unspecified Ischemic chest pain type: I Qualified Code(s ): R07.9 - Chest pain, unspecified Plan to address problem: Chest pain r/o MT protocol.Serial CE's and Lexiscan in AM.In favor of reflux esophagitis.No chest wall tenderness. (2) GERD (gastroesophageal reflux disease) Current Visit: Yes Status: Chronic Qualifiers: Esophagitis presence: with esophagitis Qualified Code(s): K21.0 - Gastro- esophageal reflux disease with esophagitis Plan to address problem: Cont PPI's (3) Obesity Current Visit: Yes Status: Chronic Qualifiers: Obesity type: due to excess calories Obesity classification: O Serious obesity comorbidity presence: S Body mass index: BMI 37.0-37.9 Plan to address problem: Counselled (4) DVT prophylaxis Current Visit: Yes Status: Acute Plan to address problem: On Lovenox
[2017-05-17 01:44] LABS: Creatine Kinase 62 units/L (30-135)
[2017-05-17 01:50] LABS: Creatine Kinase MB < 1.0 ng/mL (0.0-4.0)
[2017-05-17 05:56] LABS: Creatine Kinase MB < 1.0 ng/mL (0.0-4.0)
[2017-05-17 05:58] LABS: Creatine Kinase 59 units/L (30-135)
[2017-05-17] MEDS: HEPARIN SUB-Q SCH ×2 (06:59→17:39)
[2017-05-17] MEDS ORDERED: PROTONIX PO SCH (10:00)
[2017-05-17] MEDS ORDERED: NACL 0.9% 500 ML 500 ML ONE (10:09)
--- NOTE | 2017-05-17 11:14 | Progress Note ---
Assessment and Plan Assessment and Plan 1. Chest pain: Serial CE negative, for stress test today. Likely due to reflux esophagitis. 2. GERD: On PPI's 3. Obesity: Counseled patient on weight loss management. 4. DVT prophylaxis: On Lovenox. 5. Disposition: Will discharge patient home if stress test normal. Subjective Date of service: 05/17/17 Principal diagnosis: Chest pain Interval history: Chest pain improving, for stress test. Objective - Constitutional Vitals: Vital Signs - 12hr 05/17/17 05/17/17 05/17/17 00:00 00:48 04:45 Temperature 98.2 F 98.2 F Pulse Rate 70 57 L 60 Respiratory 18 18 Rate Blood Pressure 107/53 108/53 O2 Sat by Pulse 98 98 Oximetry 05/17/17 07:15 Temperature 98.3 F Pulse Rate 59 L Respiratory 12 Rate Blood Pressure 101/56 O2 Sat by Pulse 97 Oximetry General appearance: Present: no acute distress, well-nourished - EENT Eyes: PERRL, EOM intact ENT: hearing intact, clear oral mucosa Ears: bilateral: normal - Neck Neck: supple, normal ROM - Respiratory Respiratory effort: normal Respiratory: bilateral: CTA - Breasts Breasts: normal - Cardiovascular Rhythm: regular Heart Sounds: Present: S1 & S2. Absent: gallop, rub Extremities: pulses intact, No edema, normal color, Full ROM - Gastrointestinal General gastrointestinal: Present: soft, non-tender, non-distended, normal bowel sounds - Genitourinary Female genitourinary: normal - Integumentary Integumentary: clear, warm, dry - Musculoskeletal Musculoskeletal: 1, strength equal bilaterally - Neurologic Neurologic: moves all extremities - Psychiatric Psychiatric: memory intact, appropriate mood/affect, intact judgment & insight - Labs CBC & Chem 7: 05/16/17 10:31 05/16/17 10:31
[2017-05-17] MEDS ORDERED: Fluarix Quad 2017-2018(36 MOS+) IM ONE (12:00)
[2017-05-17 12:32] VITALS: BP 100/54
[2017-05-17 12:46] LABS: Creatine Kinase 61 units/L (30-135)
[2017-05-17 12:49] LABS: Creatine Kinase MB < 1.0 ng/mL (0.0-4.0)
--- NOTE | 2017-05-17 15:53 | Discharge Summary ---
Providers - Providers Date of Admission: 05/16/17 13:27 Date of discharge: 05/17/17 Attending physician: RAUL BAJWA none Primary care physician: BOTTLE TESTER Hospitalization Reason for admission: chest pain Condition: Stable Pertinent studies: stress thallium larissa was negative Procedures: none Hospital course: Patient is a 51 y/o AAF with history of GERD presented to the emergency department [facility] with recurrent Chest pain one week prior. Pain is intermittent in nature dull in character. 6/10 intensity. No associated SOB,Diaphoresis and Palpitations.No exacerbating or relieving factors.Was in this ER in January 2017 and April 2017 and was diagnosed with reflux esophagitis and was started on PPI's -which she is taking religiously.Was a smoker from age 19 through 36 years and quit for past 16 years.No recent travel.No fever no chills. Serial cardiac enzymes were normal. EKG was unremarkable. On admission patient was commenced on oxygen, nitroglycerin, aspirin and morphine. Stress thallium was done. Result was negative. Patient is therefore been discharged to follow-up primary care physician and lead sql developer as her chest pain is thought to be secondary to GERD. Disposition: DC-01 TO HOME OR SELFCARE Time spent for discharge: 35 mins Core Measure Documentation - Palliative Care Palliative Care/ Comfort Measures: Not Applicable - Core Measures Any of the following diagnoses?: none Exam - Constitutional Vitals: Temp Pulse Resp BP Pulse Ox 98.6 F 70 14 100/54 100 05/17/17 12:28 05/17/17 12:28 05/17/17 12:28 05/17/17 12:28 05/17/17 12:28 General appearance: Present: no acute distress, well-nourished - EENT Eyes: Present: PERRL ENT: hearing intact, clear oral mucosa - Neck Neck: Present: supple, normal ROM - Respiratory Respiratory: bilateral: CTA - Cardiovascular Heart Sounds: Present: S1 & S2. Absent: rub, click - Extremities Extremities: pulses symmetrical, No edema Peripheral Pulses: within normal limits - Abdominal General gastrointestinal: Present: soft, non-tender, non-distended, normal bowel sounds - Integumentary Integumentary: Present: clear, warm, dry - Musculoskeletal Musculoskeletal: gait normal, strength equal bilaterally - Psychiatric Psychiatric: appropriate mood/affect, intact judgment & insight - Neurologic Neurologic: CNII-XII intact, moves all extremities Plan Activity: advance as tolerated Weight Bearing Status: Weight Bear as Tolerated Diet: regular Follow up with: PRIMARY CARE, [Primary Care Provider] - 3-5 Days Prescriptions: Pantoprazole [Protonix TAB] 40 mg PO QDAY #30 tablet Ranitidine HCl [Acid Central Sterile Technician] 150 mg PO BID #60 tablet
--- NOTE | 2017-05-18 03:38 | Treadmill Report ---
THALLIUM STRESS TEST LEFT VENTRICLE: Left ventricular chamber size is within normal ____. Perfusion study demonstrates homogeneous uptake of the tracer in all segments, no significant perfusion defects identified. Gated analysis demonstrates normal left ventricular systolic function, ejection fraction 52%. CONCLUSION: Normal myocardial perfusion study. JOB# [id number] CA/NTS
== END 2017-05-17 17:32 | disposition home or self-care (01) | DRG 392 ==
LOC: ED 10:04 → 4A 13:27
PROVIDERS: ADMIT Internal Medicine; ATTEND Family Medicine
DX: K21.9 Gastro-esophageal reflux disease without esophagitis (principal); E66.9 Obesity, unspecified; Z68.32 Body mass index [BMI] 32.0-32.9, adult; Z87.891 Personal history of nicotine dependence
CPT/HCPCS: 36415; 71010; 78452; 80048; 81001; 81025; 82550; 82553; 84484; 85025; 90686; 93005; 93010; 93017; A9502; J1644; J7040

== ENCOUNTER 2017-09-20 23:43 | Emergency (ER) | payer OTHER ==
[2017-09-21] MEDS ORDERED: ASPIRIN PO ONE (00:10)
[2017-09-21 00:53] LABS: Basophils # (Auto) 0.1 K/mm3 (0.0-0.1); Basophils % (Auto) 0.8 % (0.0-1.8); Eosinophils % (Auto) 0.7 % (0.0-4.3); Hematocrit 32.1 % (30.3-42.9); Hemoglobin 10.6 gm/dl (10.1-14.3); Lymphocytes # (Auto) 1.7 K/mm3 (1.2-5.4); Mean Corpuscular HGB Conc 33 % (30-34); Mean Corpuscular Hemoglobin 27 pg (28-32); Mean Corpuscular Volume 82 fl (79-97); Monocytes # (Auto) 0.5 K/mm3 (0.0-0.8); Monocytes % (Auto) 7.1 % (0.0-7.3); Platelet Count 320 K/mm3 (140-440); Red Blood Count 3.92 M/mm3 (3.65-5.03); Red Cell Distribution Width 15.7 % (13.2-15.2)
[2017-09-21 01:16] LABS: BUN/Creatinine Ratio 13; Blood Urea Nitrogen 9 mg/dL (7-17); Calcium 9.3 mg/dL (8.4-10.2); Hemolysis Index 3
[2017-09-21 04:03] LABS: Bilirubin,Urine NEG (Negative); Blood,Urine LG (Negative); Color,Urine Yellow (Yellow); Hyaline Casts,Urine 1 /LPF; Mucus,Urine 1+ /HPF; Nitrite,Urine NEG (Negative); Protein,Urine <15 mg/dL mg/dL (Negative); Urobilinogen,Urine < 2.0 mg/dL (<2.0)
[2017-09-21 04:12] LABS: HCG Qualitative,Urine Negative (Negative)
--- NOTE | 2017-09-21 09:45 | Emergency Department Report ---
ED Chest Pain HPI - General Chief Complaint: Chest Pain Stated Complaint: CP Time Seen by Provider: 09/21/17 09:34 Source: patient Mode of arrival: Ambulatory Limitations: No Limitations - History of Present Illness Initial Comments: Patient is 51 years old female with no significant past medical history, presented to the ER with mid sternal chest pain started 2 days ago, she described her pain as sharp and does not radiate. Patient denied any shortness of breath, nausea or vomiting. Patient stated that she is unable to sleep for the last 2 days for unknown reason. 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 MD Complaint: chest pain -: days(s) - Related Data Previous Rx's Medication Instructions Recorded Last Taken Type Pantoprazole [Protonix TAB] 40 mg PO QDAY #30 tablet 05/17/17 Unknown Rx Ranitidine HCl [Acid Ad Setter] 150 mg PO BID #60 tablet 05/17/17 Unknown Rx ALPRAZolam [Xanax TAB] 0.5 mg PO DAILY PRN #5 tab 09/21/17 Unknown Rx Allergies Allergy/AdvReac Type Severity Reaction Status Date / Time No Known Allergies Allergy Verified 10/23/15 16:52 Heart Score - HEART Score History: Moderately suspicious EKG: Non-specific Age: 45-65 Risk factors: No known risk factors Troponin: < normal limit HEART Score: 3 - Critical Actions Critical Actions: 0-3 pts:0.9-1.7%risk of adverse cardiac event.Candidate for discharge ED Review of Systems ROS: Stated complaint: CP Other details as noted in HPI Comment: All other systems reviewed and negative Constitutional: denies: chills, fever Respiratory: denies: cough, orthopnea, shortness of breath, SOB with exertion Cardiovascular: chest pain. denies: palpitations, dyspnea on exertion, orthopnea, edema Gastrointestinal: denies: abdominal pain, nausea, vomiting, diarrhea, constipation, hematemesis, melena, hematochezia Genitourinary: denies: urgency Neurological: denies: headache, weakness ED Past Medical Hx - Past Medical History Hx Congestive Heart Failure: No Hx Diabetes: No Hx GERD: Yes Hx Asthma: No Hx COPD: No Hx Dementia: No Hx HIV: No - Surgical History Past Surgical History?: No - Social History Smoking Status: Former Smoker Substance Use Type: None - Medications Home Medications: Home Medications Medication Instructions Recorded Confirmed Last Taken Type Pantoprazole [Protonix TAB] 40 mg PO QDAY #30 tablet 05/17/17 Unknown Rx Ranitidine HCl [Acid Ad Setter] 150 mg PO BID #60 tablet 05/17/17 Unknown Rx ALPRAZolam [Xanax TAB] 0.5 mg PO DAILY PRN #5 tab 09/21/17 Unknown Rx ED Physical Exam - General Limitations: No Limitations - Head Head exam: Present: atraumatic, normocephalic - Eye Eye exam: Present: normal appearance, PERRL - ENT ENT exam: Present: normal exam, mucous membranes moist - Neck Neck exam: Present: normal inspection, full ROM. Absent: tenderness, meningismus - Respiratory Respiratory exam: Present: normal lung sounds bilaterally. Absent: respiratory distress, wheezes, rales, rhonchi, chest wall tenderness, accessory muscle use, decreased breath sounds, prolonged expiratory - Cardiovascular Cardiovascular Exam: Present: regular rate, normal rhythm, normal heart sounds - GI/Abdominal GI/Abdominal exam: Present: soft. Absent: distended, tenderness, guarding, rebound, rigid, mass, bruit, pulsatile mass - Extremities Exam Extremities exam: Present: normal inspection, full ROM, normal capillary refill - Back Exam Back exam: Present: normal inspection, full ROM. Absent: tenderness, CVA tenderness (R), CVA tenderness (L) - Neurological Exam Neurological exam: Present: alert, oriented X3, CN II-XII intact, normal gait - Skin Skin exam: Present: warm, intact, normal color. Absent: cyanosis, diaphoretic, erythema, urticaria ED Course Vital Signs 09/21/17 09/21/17 00:03 09:45 Temperature 97.9 F Pulse Rate 90 Respiratory 18 Rate Blood Pressure 128/74 142/82 O2 Sat by Pulse 98 Oximetry - Reevaluation(s) Reevaluation #1: 09/21/17 11:22 Patient stated that she is feeling much better. No chest pain. I advised patient to take melatonin and [id number] for sleeping aids AKASH score - Akash Score Age > 65: (0) No Aspirin use within the Past 7 Days: (0) No 3 or more CAD Risk Factors: (0) No 2 or more Angina events in past 24 hrs: (1) Yes Known CAD with more than 50% Stenosis: (0) No Elevated Cardiac Markers: (0) No ST Deviation Greater than 0.5mm: (0) No AKASH Score: 1 ED Medical Decision Making - Lab Data Result diagrams: 09/21/17 00:27 09/21/17 00:27 - EKG Data -: EKG Interpreted by Me EKG shows normal: sinus rhythm - EKG Data Interpretation: no acute changes - Radiology Data Radiology results: report reviewed Referring Physician: MARIA DE JESUS ENGLAND Patient Name: SHELBY ULLOA Date of : 1965 Sex: Female Report Date: 2017-09-21 Report Status: Finalized Findings [facility] [address] [place] [address] XRay Report Signed Patient: SHELBY ULLOA MR#: [id number] : 1965 Acct:[id number] Age/Sex: 51 / F ADM Date: 09/20/17 Loc: ED Attending Dr: Ordering Physician: MARIA DE JESUS ENGLAND Date of Service: 09/21/17 Procedure(s): XR chest 1V ap Accession Number(s): [id number] cc: MARIA DE JESUS ENGLAND Fluoro Time In Minutes: CHEST ONE VIEW INDICATION: Chest pain. COMPARISON: 05/16/2017. FINDINGS: Portable, single, frontal chest radiograph demonstrates normal cardiomediastinal silhouette. Clear lungs. Mild thoracic spondylosis. CONCLUSION: No acute disease. Thank you for the opportunity to participate in this patient's care. Transcribed By: RS Dictated By: YOSEF MESA MD Electronically Authenticated By: YOSEF MESA MD Signed Date/Time: 09/21/17 1029 DD/ 1029 TD/TT: 09/21/17 1029 Critical care attestation.: If time is entered above; I have spent that time in minutes in the direct care of this critically ill patient, excluding procedure time. ED Disposition Clinical Impression: Chest pain, Insomnia due to anxiety and fear Disposition: DC-01 TO HOME OR SELFCARE Is pt being admited?: No Condition: Stable Instructions: Chest Pain (ED) Additional Instructions: He can take [id number] melatonin to help was asleep Prescriptions: ALPRAZolam [Xanax TAB] 0.5 mg PO DAILY PRN #5 tab PRN Reason: Anxiety Referrals: PRIMARY CARE, [Primary Care Provider] - 3-5 Days Forms: Work/School Release Form(ED)
[2017-09-21 09:49] VITALS: BP 142/82
--- NOTE | 2017-09-21 10:38 | XRay Report ---
CHEST ONE VIEW INDICATION: Chest pain. COMPARISON: 05/16/2017. FINDINGS: Portable, single, frontal chest radiograph demonstrates normal cardiomediastinal silhouette. Clear lungs. Mild thoracic spondylosis. CONCLUSION: No acute disease. Thank you for the opportunity to participate in this patient's care.
== END 2017-09-21 13:00 | disposition home or self-care (01) ==
LOC: ED 23:43
DX: F41.9 Anxiety disorder, unspecified (principal); F51.05 Insomnia due to other mental disorder; K21.9 Gastro-esophageal reflux disease without esophagitis; Z87.891 Personal history of nicotine dependence
CPT/HCPCS: 36415; 71045; 80048; 81001; 81025; 84484; 85025; 93005; 93010; 99284

== ENCOUNTER 2017-10-15 00:11 | Inpatient (IN) | payer SELFPAY ==
[2017-10-15] MEDS ORDERED: ASPIRIN PO ONE (01:04)
[2017-10-15 01:21] LABS: Basophils # (Auto) 0.1 K/mm3 (0.0-0.1); Basophils % (Auto) 1.3 % (0.0-1.8); Eosinophils % (Auto) 0.8 % (0.0-4.3); Hematocrit 31.2 % (30.3-42.9); Lymphocytes # (Auto) 2.2 K/mm3 (1.2-5.4); Lymphocytes % (Auto) 34.8 % (13.4-35.0); Mean Corpuscular HGB Conc 32 % (30-34); Mean Corpuscular Hemoglobin 27 pg (28-32); Mean Corpuscular Volume 85 fl (79-97); Monocytes # (Auto) 0.6 K/mm3 (0.0-0.8); Monocytes % (Auto) 8.8 % (0.0-7.3); Platelet Count 307 K/mm3 (140-440); Red Blood Count 3.69 M/mm3 (3.65-5.03); Red Cell Distribution Width 15.9 % (13.2-15.2)
[2017-10-15 01:33] LABS: BUN/Creatinine Ratio 20; Blood Urea Nitrogen 14 mg/dL (7-17); Calcium 9.2 mg/dL (8.4-10.2); Hemolysis Index 20
[2017-10-15] MEDS ORDERED: MORPHINE IV ONE (03:41)
[2017-10-15] MEDS ORDERED: ZOFRAN IV ONE (03:41)
[2017-10-15] MEDS ORDERED: NITRO-BID 2% TP ONE (03:41)
--- NOTE | 2017-10-15 03:49 | Emergency Department Report ---
HPI - General Chief Complaint: Chest Pain Time Seen by Provider: 10/15/17 03:31 - HPI HPI: Room 23 The patient is a 51-year-old female presenting with a chief complaint of chest pain. The patient states for the past 3 days she's had intermittent substernal chest pain described as squeezing/tightness/pressure in nature. Patient states she has also had a headache and lightheadedness with her chest pressure. Patient denies shortness of breath, nausea/vomiting or diaphoresis. The patient currently gives her chest pain score of 6/10. The patient states she's never had a cardiac catheterization. The patient admits to insomnia for the past 3 weeks Location: Chest, see above Duration: Intermittent 3 days Quality: Pressure Severity:6/10 Modifying factors: [see above] Context: [see above] Mode of transportation: [not driving] ED Past Medical Hx - Past Medical History Previous Medical History?: Yes Hx GERD: Yes - Surgical History Past Surgical History?: No - Family History Family history: no significant - Social History Smoking Status: Former Smoker (none 16 years) Substance Use Type: None (denies illicit drug use), Alcohol (occasional) - Medications Home Medications: Home Medications Medication Instructions Recorded Confirmed Last Taken Type Pantoprazole [Protonix TAB] 40 mg PO QDAY #30 tablet 05/17/17 Unknown Rx Ranitidine HCl [Acid Biomedical Technician] 150 mg PO BID #60 tablet 05/17/17 Unknown Rx ALPRAZolam [Xanax TAB] 0.5 mg PO DAILY PRN #5 tab 09/21/17 Unknown Rx ED Review of Systems ROS: Stated complaint: LIGHT HEADED Other details as noted in HPI Constitutional: denies: diaphoresis Respiratory: denies: shortness of breath Cardiovascular: chest pain Gastrointestinal: denies: nausea, vomiting Neurological: headache Physical Exam - Physical Exam Vital Signs: Vital Signs 10/15/17 00:57 Temperature 97.9 F Pulse Rate 99 H Respiratory 18 Rate Blood Pressure 125/74 O2 Sat by Pulse 99 Oximetry Physical Exam: GENERAL: The patient is well-developed well-nourished female lying on stretcher not appearing to be in acute distress. [] HEENT: Normocephalic. Atraumatic. Extraocular motions are intact. Patient has moist mucous membranes. NECK: Supple. Trachea midline CHEST/LUNGS: Clear to auscultation. There is no respiratory distress noted. HEART/CARDIOVASCULAR: Regular. There is no tachycardia. There is no gallop rub or murmur. ABDOMEN: Abdomen is soft, nontender. Patient has normal bowel sounds. There is no abdominal distention. SKIN: There is no rash. There is no edema. There is no diaphoresis. NEURO: The patient is awake, alert, and oriented. The patient is cooperative. The patient has normal speech MUSCULOSKELETAL: There is no evidence of acute injury. ED Course Vital Signs 10/15/17 00:57 Temperature 97.9 F Pulse Rate 99 H Respiratory 18 Rate Blood Pressure 125/74 O2 Sat by Pulse 99 Oximetry ED Medical Decision Making - Lab Data Result diagrams: 10/15/17 01:09 10/15/17 01:09 Laboratory Tests 10/15/17 10/15/17 01:09 01:09 WBC 6.4 RBC 3.69 Hgb 10.0 L Hct 31.2 MCV 85 MCH 27 L MCHC 32 RDW 15.9 H Plt Count 307 Lymph % (Auto) 34.8 [place] % (Auto) 8.8 H Eos % (Auto) 0.8 Baso % (Auto) 1.3 Lymph # 2.2 [place] # 0.6 Eos # 0.0 Baso # 0.1 Seg Neutrophils % 54.3 Seg Neutrophils # 3.5 Sodium 141 Potassium 4.1 Chloride 103.9 Carbon Dioxide 24 Anion Gap 17 BUN 14 Creatinine 0.7 Estimated GFR > 60 BUN/Creatinine Ratio 20 Glucose 91 Calcium 9.2 Troponin T < 0.010 - EKG Data -: EKG Interpreted by Me EKG shows normal: sinus rhythm Rate: normal - EKG Data When compared to previous EKG there are: no significant change Interpretation: unchanged when compared t (09/20/2017) - Radiology Data Radiology results: image reviewed (chest x-ray) interpreted by me: Chest x-ray-no focal factors, no pneumothorax - Differential Diagnosis ACS, GERD, pericarditis Critical care attestation.: If time is entered above; I have spent that time in minutes in the direct care of this critically ill patient, excluding procedure time. ED Disposition Clinical Impression: Chest pain Disposition: OP ADMIT IP TO THIS HOSP Is pt being admited?: Yes Does the pt Need Aspirin: Yes Condition: Fair Instructions: Chest Pain (ED) Referrals: ASTER DELEON MD [Primary Care Provider] - 3-5 Days Time of Disposition: 03:57 (hospitalist paged (Dr Balderas))
--- NOTE | 2017-10-15 04:48 | XRay Report ---
FINAL REPORT PROCEDURE: XR CHEST 1V AP TECHNIQUE: Chest radiograph anteroposterior view. CPT 27898 HISTORY: chest pain COMPARISON: No prior studies are available for comparison. FINDINGS: Heart: Normal. Mediastinum/Vessels: Normal. Lungs/Pleural space: Lungs are expanded and clear. There are no infiltrates. There are no effusions or pneumothoraces.. Bony thorax: No acute osseous abnormality. Life support devices: None. IMPRESSION: No acute cardiopulmonary abnormality.
[2017-10-15] MEDS ORDERED: BABY ASPIRIN PO STA (05:49)
[2017-10-15] MEDS ORDERED: SODIUM CHLORIDE FLUSH SYRINGE 10 ML IV PRN ×2 (05:49→05:51)
[2017-10-15] MEDS ORDERED: TYLENOL PO PRN (05:51)
[2017-10-15] MEDS ORDERED: ZOFRAN IV PRN (05:51)
--- NOTE | 2017-10-15 06:00 | History and Physical Report ---
History of Present Illness Date of examination: 10/15/17 Chief complaint: Insomnia History of present illness: 51-year-old -[place] female with medical history significant for GERD presented to the emergency department for the complaints of insomnia for the last 3 weeks. No significant change in her lifestyle, she has not been drinking coffee. For the last 3 days she started to lightheadedness. Patient is also complaining midsternal throbbing discomfort for the last 3 days, 5 out of 10 in intensity, with no radiation with no associated shortness of breath or diaphoresis. No aggravating or alleviating factors identified. Patient was admitted for recurrent chest pain last time and cardiac stress test was done and is negative. Patient is admitted to the floor cardiology is consulted for possible cardiac cath. REVIEW OF SYSTEMS: GENERAL: no weight change, no fatigue, no fever HEAD: no head ache EYES: no blurry vision, no acute visual loss EARS: no hearing loss, no discharge, no earache NOSE: no stuffiness, no sneezing, no discharge MOUTH, THROAT AND NECK: no bleeding gums, no sore throat, no swollen neck CARDIAC: As stated in the HPI. RESPIRATORY: no shortness of breath, no wheeze, no cough, no sputum, no hemoptysis, no asthma GI: no decreased appetite, no nausea, no vomiting, no dysphagia, no diarrhea, no constipation, no abdominal pain URINARY: no change in frequency, no urgency, no polyuria, no hematuria, no incontinence MUSCULOSKELETAL: no muscle weakness, no pain, no joint stiffness NEUROLOGIC: no loss of sensation/numbness, no tingling, no tremors, no weakness/ paralysis HEMATOLOGIC: no anemia, no easy bruising SKIN: no rashes ENDOCRINE: no heat/cold intolerance, no polyuria, no polydipsia, no thyroid problems, no diabetes PSYCHIATRIC: no anxiety, no depression, no suicidal ideations Past History Past Medical History: GERD Past Surgical History: No surgical history Social history: full code. denies: smoking, alcohol abuse, prescription drug abuse, IV drug use Family history: no significant family history Medications and Allergies Allergies Allergy/AdvReac Type Severity Reaction Status Date / Time No Known Allergies Allergy Verified 10/23/15 16:52 Home Medications Medication Instructions Recorded Confirmed Last Taken Type Pantoprazole [Protonix TAB] 40 mg PO QDAY #30 tablet 05/17/17 Unknown Rx Ranitidine HCl [Acid Electronics Engineer] 150 mg PO BID #60 tablet 05/17/17 Unknown Rx ALPRAZolam [Xanax TAB] 0.5 mg PO DAILY PRN #5 tab 09/21/17 Unknown Rx Active Meds: Active Medications Aspirin (Baby Aspirin) 324 mg PO ONCE STA Stop: 10/15/17 05:50 Atorvastatin Calcium (Lipitor) 40 mg PO QHS FRANCO Sodium Chloride (Sodium Chloride Flush Syringe 10 Ml) 10 ml IV PRN PRN PRN Reason: LINE FLUSH Zolpidem Tartrate (Ambien) 10 mg PO QHS PRN PRN Reason: Sleep Exam - Physical Exam Narrative exam: Not in cardiopulmonary distress. The patient is obese. Vital signs as documented. Head exam is unremarkable. No scleral icterus . Neck is without jugular venous distension, thyromegaly, or carotid bruits. Lungs are clear to auscultation. Cardiac exam reveals regular rate and Rhythm. First and second heart sounds normal. No murmurs, rubs or gallops. Abdominal exam reveals normal bowel sounds, no masses, no organomegaly and no aortic enlargement. Extremities are nonedematous and both femoral and pedal pulses are normal. QUALITY LAB TECHNICIAN: Alert and oriented 3. No focal weakness. - Constitutional Vitals: Temp Pulse Resp BP Pulse Ox 97.9 F 69 11 L 116/58 100 10/15/17 00:57 10/15/17 03:55 10/15/17 03:55 10/15/17 03:55 10/15/17 03:55 Results - Labs CBC & Chem 7: 10/15/17 01:09 10/15/17 01:09 Labs: Laboratory Last Values WBC 6.4 K/mm3 (4.5-11.0) 10/15/17 01:09 RBC 3.69 M/mm3 (3.65-5.03) 10/15/17 01:09 Hgb 10.0 gm/dl (10.1-14.3) L 10/15/17 01:09 Hct 31.2 % (30.3-42.9) 10/15/17 01:09 MCV 85 fl (79-97) 10/15/17 01:09 MCH 27 pg (28-32) L 10/15/17 01:09 MCHC 32 % (30-34) 10/15/17 01:09 RDW 15.9 % (13.2-15.2) H 10/15/17 01:09 Plt Count 307 K/mm3 (140-440) 10/15/17 01:09 Lymph % (Auto) 34.8 % (13.4-35.0) 10/15/17 01:09 [place] % (Auto) 8.8 % (0.0-7.3) H 10/15/17 01:09 Eos % (Auto) 0.8 % (0.0-4.3) 10/15/17 01:09 Baso % (Auto) 1.3 % (0.0-1.8) 10/15/17 01:09 Lymph # 2.2 K/mm3 (1.2-5.4) 10/15/17 01:09 [place] # 0.6 K/mm3 (0.0-0.8) 10/15/17 01:09 Eos # 0.0 K/mm3 (0.0-0.4) 10/15/17 01:09 Baso # 0.1 K/mm3 (0.0-0.1) 10/15/17 01:09 Seg Neutrophils % 54.3 % (40.0-70.0) 10/15/17 01:09 Seg Neutrophils # 3.5 K/mm3 (1.8-7.7) 10/15/17 01:09 Sodium 141 mmol/L (137-145) 10/15/17 01:09 Potassium 4.1 mmol/L (3.6-5.0) 10/15/17 01:09 Chloride 103.9 mmol/L (98-107) 10/15/17 01:09 Carbon Dioxide 24 mmol/L (22-30) 10/15/17 01:09 Anion Gap 17 mmol/L 10/15/17 01:09 BUN 14 mg/dL (7-17) 10/15/17 01:09 Creatinine 0.7 mg/dL (0.7-1.2) 10/15/17 01:09 Estimated GFR > 60 ml/min 10/15/17 01:09 BUN/Creatinine Ratio 20 % 10/15/17 01:09 Glucose 91 mg/dL (65-100) 10/15/17 01:09 Calcium 9.2 mg/dL (8.4-10.2) 10/15/17 01:09 Troponin T < 0.010 ng/mL (0.00-0.029) 10/15/17 04:08 Assessment and Plan Assessment and plan: Recurrent Chest pain - Troponin is negative, EKG normal sinus rhythm, recent stress is negative for acute ischemia - Cardiology consult placed Insomnia - UDS - Thyroid function test GERD - on pantoprazole DVT prophylaxis - On heparin Disposition to telemetry floor Advance Directives: Yes VTE prophylaxis?: Chemical Plan of care discussed with patient/family: Yes
[2017-10-15 06:47] LABS: BUN/Creatinine Ratio 23; Basophils # (Auto) 0.1 K/mm3 (0.0-0.1); Basophils % (Auto) 0.9 % (0.0-1.8); Blood Urea Nitrogen 14 mg/dL (7-17); Eosinophils # (Auto) 0.1 K/mm3 (0.0-0.4); Eosinophils % (Auto) 1.1 % (0.0-4.3); Hematocrit 28.8 % (30.3-42.9); Hemoglobin 9.5 gm/dl (10.1-14.3); Hemolysis Index 4; Lymphocytes % (Auto) 35.5 % (13.4-35.0); Mean Corpuscular HGB Conc 33 % (30-34); Mean Corpuscular Hemoglobin 27 pg (28-32); Mean Corpuscular Volume 83 fl (79-97); Monocytes # (Auto) 0.6 K/mm3 (0.0-0.8); Monocytes % (Auto) 9.8 % (0.0-7.3); Platelet Count 268 K/mm3 (140-440); Red Blood Count 3.47 M/mm3 (3.65-5.03); Red Cell Distribution Width 15.9 % (13.2-15.2)
[2017-10-15] MEDS: HEPARIN SUB-Q SCH ×3 (07:12→22:17)
--- NOTE | 2017-10-15 11:14 | Event Note ---
Date: 10/15/17 Patient seen and examined. This is a follow-up from an admission earlier this morning. We will continue the plan as outlined in the H&P. Follow-up echocardiogram and carotid ultrasound
[2017-10-15] MEDS: SODIUM CHLORIDE FLUSH SYRINGE 10 ML IV SCH ×2 (13:53→22:17)
[2017-10-15] MEDS: PROTONIX PO SCH (13:53)
--- NOTE | 2017-10-15 20:46 | Consultation ---
CARDIOLOGY CONSULTATION REASON FOR CONSULTATION: Evaluation of chest pain. HISTORY OF PRESENT ILLNESS: The patient is a 51-year-old -[place] female who says she changed her new job and for last many days she is not able to sleep well. She is feeling lightheaded and some intermittent squeezing, tightness, pressure for the last 2-3 days intermittently. This pain is going on for the last few days, not related to exertion. This is going on for the last 2-3 days. She claims this started when she is not able to sleep well. Otherwise, denied any shortness of breath, no orthopnea, no PND, no leg swelling. PAST MEDICAL HISTORY: Essentially unremarkable except for gastroesophageal reflux disease for which she goes to the [facility] and gets pantoprazole. No history of hypertension, diabetes mellitus, pulmonary or renal problems. PAST SURGICAL HISTORY: No significant surgical history. SOCIAL HISTORY: The patient used to smoke in the past and quit smoking 16 years ago. No history of drug abuse. MEDICATIONS: At home included Protonix 40 mg once a day, Xanax 0.5 mg daily p.r.n. REVIEW OF SYSTEMS: The patient has history of chest pains in the past. She had a cardiac workup done at this hospital, had a stress nuclear imaging performed on 05/17/2017 which was found to be normal. Since that time apparently, she did well. Otherwise, no history of myocardial infarction or congestive heart failure. No history of strokes or seizures. No history of kidney stones or gallstones. No leg swelling. No fever or coughing. No vomiting or diarrhea. LABORATORY DATA: Showed hemoglobin of 10 g/dL, platelet count of 307,000. BMP was unremarkable with glucose of 91. EKG done at the time of admission showed sinus rhythm with minimal ST elevations suggestive of repolarization abnormalities. Essentially unremarkable EKGs were noted on 2 occasions. Laboratory data showed three sets of cardiac enzymes to be unremarkable. PHYSICAL EXAMINATION: VITAL SIGNS: Blood pressure is 125/74, pulse 99 per minute, afebrile. GENERAL: The patient appears to be comfortable, well developed, well nourished. HEENT: Conjunctivae pink. Sclerae anicteric. NECK: Supple, no JVD. HEART: Regular, probably S4, no S3, no significant murmurs. LUNGS: Clear. ABDOMEN: Benign. EXTREMITIES: Without edema. NEUROLOGIC: Alert, oriented x 3. FINAL IMPRESSION: Chest pain atypical, few days' duration, which is very atypical, resolved today. The patient had negative pharmacological stress testing done on 05/17/2017. Discussed with the patient. She states her chest pains are mostly related to her lack of sleeping for last many days and she says she is feeling better. Considering EKG is unremarkable, cardiac enzymes are unremarkable, her chest pains resolved, no particular intervention at this time. If she has any recurrence of chest pain, she will let us know. Continue risk factor modification, namely monitoring of lipids and blood pressure, but she is not hypertensive or hyperlipidemic. By history, she has anemia with hemoglobin of 9.5 g/dL. Cardiac status appears to be stable. I discussed with her if any recurrence of chest pain, she will call our office for further appointment. Otherwise, she will be followed by [facility]. Thank you very much, Dr. Balderas for letting us participate in your patient care. JOB# [id number] CHALINO/REESE SANCHEZ
[2017-10-15 20:59] LABS: Amphetamine Screen,Urine PRESUMPTIVE NEGATIVE; Benzodiazepines Screen,Urine PRESUMPTIVE NEGATIVE; Cannabinoid Screen,Urine PRESUMPTIVE NEGATIVE; Cocaine Screen,Urine PRESUMPTIVE NEGATIVE; Methadone Screen,Urine PRESUMPTIVE NEGATIVE; Opiate Screen,Urine PRESUMPTIVE NEGATIVE
[2017-10-15] MEDS ORDERED: AMBIEN PO PRN (22:00)
[2017-10-16 06:16] LABS: Basophils % (Auto) 0.5 % (0.0-1.8); Eosinophils # (Auto) 0.1 K/mm3 (0.0-0.4); Eosinophils % (Auto) 1.3 % (0.0-4.3); Hematocrit 30.1 % (30.3-42.9); Lymphocytes # (Auto) 2.2 K/mm3 (1.2-5.4); Lymphocytes % (Auto) 37.6 % (13.4-35.0); Mean Corpuscular HGB Conc 33 % (30-34); Mean Corpuscular Hemoglobin 28 pg (28-32); Mean Corpuscular Volume 83 fl (79-97); Monocytes # (Auto) 0.5 K/mm3 (0.0-0.8); Platelet Count 262 K/mm3 (140-440); Red Blood Count 3.62 M/mm3 (3.65-5.03)
[2017-10-16 06:39] LABS: BUN/Creatinine Ratio 16; Blood Urea Nitrogen 11 mg/dL (7-17); Calcium 8.7 mg/dL (8.4-10.2); Hemolysis Index 0
[2017-10-16] MEDS: HEPARIN SUB-Q SCH (06:54)
[2017-10-16 09:10] VITALS: BP 108/56
[2017-10-16] MEDS: PROTONIX PO SCH (11:00)
[2017-10-16] MEDS: SODIUM CHLORIDE FLUSH SYRINGE 10 ML IV SCH (11:01)
--- NOTE | 2017-10-16 11:09 | Discharge Summary ---
Providers - Providers Date of Admission: 10/15/17 05:51 Date of discharge: 10/16/17 Attending physician: YUMIKO HWANG 10/15/17 Consult to Cardiac Rehabilitation [CONS] Routine Reason For Exam: Phase I 10/15/17 05:49 Consult to Cardiology [CONS] Routine Consulting Provider: CHUY NICHOLS Reason For Exam: chest pain, recent stress test negative Primary care physician: ASTER DELEON Hospitalization Reason for admission: presyncope Condition: Fair Hospital course: This is a 51-year-old female who presented to the emergency department with complaints of insomnia, chest pain and lightheadedness. Patient was admitted with a diagnosis of presyncope and chest pain. Patient was seen by cardiology in consultation who felt that the pain was atypical. EKG and cardiac enzymes were unremarkable. Cardiology recommended no intervention at this time. Patient is to follow-up as an outpatient. Patient had a normal stress test a few months ago. Patient received Ambien with relief of her insomnia. The echocardiogram and carotid ultrasound were completed and results will be followed up in cardiology office as an outpatient. Dedicated discharge time 35 minutes. Disposition: DC- TO HOME OR SELFCARE Time spent for discharge: 35 - Discharge Diagnoses (1) Insomnia Status: Acute (2) Pre-syncope Status: Acute (3) Chest pain Status: Acute (4) GERD (gastroesophageal reflux disease) Status: Chronic Qualifiers: Esophagitis presence: with esophagitis Qualified Code(s): K21.0 - Gastro- esophageal reflux disease with esophagitis Core Measure Documentation - Palliative Care Palliative Care/ Comfort Measures: Not Applicable - Core Measures Any of the following diagnoses?: none Exam - Constitutional Vitals: Temp Pulse Resp BP Pulse Ox 98.3 F 75 18 108/56 98 10/16/17 07:39 10/16/17 07:39 10/16/17 07:39 10/16/17 07:39 10/16/17 07:39 General appearance: Present: no acute distress, well-nourished - EENT Eyes: Present: PERRL ENT: hearing intact, clear oral mucosa - Neck Neck: Present: supple, normal ROM - Respiratory Respiratory effort: normal Respiratory: bilateral: CTA - Cardiovascular Heart Sounds: Present: S1 & S2. Absent: rub, click - Extremities Extremities: pulses symmetrical, No edema Peripheral Pulses: within normal limits - Abdominal General gastrointestinal: Present: soft, non-tender, non-distended, normal bowel sounds Female genitourinary: Present: normal - Integumentary Integumentary: Present: clear, warm, dry - Musculoskeletal Musculoskeletal: gait normal, strength equal bilaterally - Psychiatric Psychiatric: appropriate mood/affect, intact judgment & insight - Neurologic Neurologic: CNII-XII intact, moves all extremities Plan Activity: no restrictions Weight Bearing Status: Full Weight Bearing Diet: regular Follow up with: ASTER DELEON MD [Primary Care Provider] - 3-5 Days HCUY NICHOLS MD [Staff Physician] - 7 Days Prescriptions: ALPRAZolam [Xanax TAB] 0.5 mg PO DAILY PRN #5 tab PRN Reason: Anxiety AtorvaSTATin [Lipitor] 40 mg PO QHS #30 tablet Pantoprazole [Protonix TAB] 40 mg PO DAILY #30 tablet Zolpidem [Ambien] 10 mg PO QHS PRN #30 tablet PRN Reason: Sleep
== END 2017-10-16 13:42 | disposition home or self-care (01) | DRG 313 ==
LOC: SUATTDRO 00:11 → ED 00:11 → 4A 05:51
PROVIDERS: ADMIT Internal Medicine; ATTEND Hospitalist
DX: R07.89 Other chest pain (principal); K21.9 Gastro-esophageal reflux disease without esophagitis; Z87.891 Personal history of nicotine dependence; Z79.899 Other long term (current) drug therapy; G47.00 Insomnia, unspecified
CPT/HCPCS: 36415; 71045; 80048; 80307; 84439; 84443; 84484; 85025; 93005; 93010; 93306; 93880; 96374; 96375; A9270-GY; J1644; J2270; J2405